=== PATIENT | female | born 1960 | race Caucasian/White ===

== ENCOUNTER 2016-10-15 15:19 | Emergency (ER) | payer OTHER ==
[~2016-10-15] VITALS: Ht 167.6 cm; Wt 112.5 kg
[~2016-10-15 15:19] MED LIST: CENTRAVITES 501 EACH PO; FIORICET,ESG1 TABLET PO; FLEXERIL10 MG PO; GEODON40 MG PO; INDERAL10 MG PO; NORCO 5/3251 TABLET PO; PROZAC20 MG PO; SYNTHROID150 MCG PO
[2016-10-15] MEDS ORDERED: VENTOLIN HFA18 GM IH (16:33)
[2016-10-15 19:16] LABS: ADD MIUA? YES; BILIRUBIN NEGATIVE; BLOOD NEGATIVE; GLUCOSE (STRIP) NEGATIVE; KETONES 20; LEUKOCYTES MODERATE; NITRITE POSITIVE; PROTEIN (STRIP) 30; SPECIFIC GRAVITY 1.018 (1.000-1.030); UROBILINOGEN 0.2 MG/DL (0.2-1.0)
[2016-10-15 19:26] LABS: BACTERIA RARE /HPF; EPITHELIAL CELLS RARE /HPF; GRANULAR CASTS 0-5 /LPF; MUCUS 1+ /LPF; RED BLOOD CELLS 0-5 /HPF (0-5); WHITE BLOOD CELLS 30-40 /HPF (0-5)
[2016-10-15 19:27] LABS: COLOR YELLOW ((YELLOW))
[2016-10-15] MEDS ORDERED: PREDNISONE50 MG PO (20:04)
[2016-10-15] MEDS ORDERED: CIPRO500 MG PO (20:04)
[2016-10-15 20:28] VITALS: BP 131/62
== END 2016-10-15 20:29 | disposition home or self-care (01) ==
LOC: EME 15:19
PROVIDERS: Physician Assistant
DX: N39.0 Urinary tract infection, site not specified (principal); M54.41 Lumbago with sciatica, right side; J44.9 Chronic obstructive pulmonary disease, unspecified; Z90.710 Acquired absence of both cervix and uterus; Z87.891 Personal history of nicotine dependence
CPT/HCPCS: 81003; 87077; 87086; 87186; 99281; 99285; J2270; J7512